=== PATIENT | male | born 1955 | race Two or more races ===

== ENCOUNTER 2023-01-20 10:15 | Inpatient (IN) | payer OTHER ==
[~2023-01-20] VITALS: Ht 177.8 cm; Wt 209.9 kg
[2023-01-20] VITALS (10 sets, daily range): BP systolic 106–127; BP diastolic 58–73; PULSE 54–84; RESP 13–18; TEMP 98.1–98.6; O2SAT 92–100
[2023-01-20 10:42] LABS: Basophils # (auto) 0.1 10 ^3/uL (0-0.2); Basophils % (auto) 0.8 % (0.0-2.0); Eosinophils # (auto) 0.1 10 ^3/uL (0-0.8); Eosinophils % (auto) 1.1 % (0.0-7.0); Hematocrit 46.8 % (41.0-53.0); Hemoglobin 15.5 g/dL (13.5-17.5); Lymphocytes # (auto) 1.9 10 ^3/uL (0.4-5.4); Lymphocytes % (auto) 14.8 % (10.0-50.0); Mean Corpuscular Hemoglobin 30.7 pg (28.0-32.0); Mean Corpuscular Hgb Conc. 33.2 g/dL (32.0-36.0); Mean Corpuscular Volume 92.5 fL (80.0-100.0); Monocytes # (auto) 0.9 10 ^3/uL (0-1.3); Monocytes % (auto) 6.8 % (0.0-12.0); Neutrophils % (auto) 76.5 % (37.0-80.0); Red Blood Cells 5.06 10^6/uL (4.5-5.90); Red Cell Distribution Width 13.7 % (11.8-14.3)
[2023-01-20] MEDS ORDERED: ASPirin 325 MG TAB PO ONE (10:45)
[2023-01-20] MEDS ORDERED: NITROGLYCERIN 0.4 MG SL TAB SL ONE (10:45)
[2023-01-20 10:58] LABS: Alanine Aminotransferase 29 U/L (7-40); Alkaline Phosphatase 67 U/L (46-116); Anion Gap 5 (5-15); Aspartate Aminotransferase 41 U/L (13-40); BUN/Creatinine Ratio 14.8 (10.0-20.0); Blood Urea Nitrogen 16 mg/dL (9-23); Calcium 9.5 mg/dL (8.5-10.1); Carbon Dioxide 30 mmol/L (20-30); Chloride 104 mmol/L (98-107); Glucose 145 mg/dL (74-106); Sodium 139 mmol/L (136-145)
[2023-01-20 10:59] LABS: Bilirubin, Total 1.1 mg/dL (0.2-1.0); Total Protein 6.8 g/dL (5.7-8.2)
[2023-01-20] MEDS ORDERED: ENOXAPARIN SOD 100 MG/1 ML SYRINGE SC ONE (11:15)
[2023-01-20 12:06] LABS: Urine Bacteria NONE SEEN /hpf (None Seen); Urine Blood Negative /uL (Negative); Urine Clarity Clear (Clear); Urine Color Yellow (Yellow); Urine Mucus FEW (None Seen); Urine Protein, UAD Negative (Negative); Urine Urobilinogen Normal (Negative); Urine WBC 2 /hpf (0 - 3)
[2023-01-20 12:31] LABS: Albumin 4.8 g/dL (3.2-4.8)
[2023-01-20 12:53] LABS: Basophils # (auto) 0.1 10 ^3/uL (0-0.2); Basophils % (auto) 0.7 % (0.0-2.0); Eosinophils # (auto) 0.1 10 ^3/uL (0-0.8); Eosinophils % (auto) 0.7 % (0.0-7.0); Hematocrit 45.1 % (41.0-53.0); Hemoglobin 15.2 g/dL (13.5-17.5); Lymphocytes # (auto) 1.9 10 ^3/uL (0.4-5.4); Lymphocytes % (auto) 15.6 % (10.0-50.0); Mean Corpuscular Hgb Conc. 33.6 g/dL (32.0-36.0); Mean Corpuscular Volume 92.1 fL (80.0-100.0); Monocytes # (auto) 0.6 10 ^3/uL (0-1.3); Neutrophils # (auto) 9.6 10 ^3/uL (1.6-8.6); Red Cell Distribution Width 13.4 % (11.8-14.3); White Blood Cell 12.3 10^3/uL (4.4-10.8)
[2023-01-20] MEDS ORDERED: HEPARIN DRIP/D5W 100UNITS/ML 250 ML IV SCH (13:00)
[2023-01-20 13:09] LABS: INR 1.1 (0.9-1.15); Partial Thromboplastin Time 35.3 SEC (24.5-34.5); Prothrombin Time 11.5 sec (9.3-11.8)
[2023-01-20] MEDS ORDERED: ACETAMINOPHEN 325 MG TAB PO PRN (15:00)
[2023-01-20] MEDS ORDERED: MORPHINE SULFATE 4 MG/ML SYR/VIAL IV PRN (15:00)
[2023-01-20] MEDS ORDERED: MORPHINE SULFATE INJ 2 MG/ml SYRG IV PRN ×2 (15:00→18:45)
[2023-01-20] MEDS ORDERED: ONDANSETRON HCL 4 MG/2 ML VIAL IV PRN (15:00)
[2023-01-20] MEDS ORDERED: CLOPIDOGREL 300 MG TAB PO ONE (15:00)
[2023-01-20] MEDS ORDERED: NITROGLYCERIN 0.4 MG SL TAB SL PRN ×2 (15:00→18:45)
[2023-01-20] MEDS ORDERED: NICOTINE 14 MG/24HR TOPICAL PATCH TD ONE (15:15)
[2023-01-20 16:21] LABS: Magnesium 1.9 mg/dL (1.6-2.6)
[2023-01-20] MEDS ORDERED: LIDOCAINE 2%HCL (LOCAL ANESTH.) INJ 20ML MDV ONE (16:38)
[2023-01-20] MEDS ORDERED: IODIXANOL 320MG/ML 100ML BTL IV ONE ×2 (16:38→18:04)
[2023-01-20] MEDS ORDERED: VERAPAMIL 2.5MG/ML INJ 2ML VIAL IV ONE (16:40)
[2023-01-20] MEDS ORDERED: ATROPINE SULF 1 MG/10ml SYR ONE (16:40)
[2023-01-20] MEDS ORDERED: MIDAZOLAM HCL 2MG/2ML 2ml VIAL (1mg/ml) ONE (16:40)
[2023-01-20] MEDS ORDERED: fentaNYL CITRATE 100 MCG/2 ML VL ONE (16:40)
[2023-01-20] MEDS ORDERED: ANGIOMAX 250 MG VIAL IV ONE (16:40)
[2023-01-20] MEDS ORDERED: EPINEPHrine HCL 1 MG/10 ML SYRG ONE (16:41)
[2023-01-20] MEDS ORDERED: SODIUM CHL 0.9% 50 ML ONE (16:41)
[2023-01-20] MEDS ORDERED: HEPARIN SODIUM (PORCINE) 5000 UNITS/ML 1ML VIAL ONE (16:41)
[2023-01-20] MEDS ORDERED: EPTIFIBATIDE INJ (2MG/ML) 10ML VIAL IV ONE (17:41)
[2023-01-20] MEDS ORDERED: niCARdipine 25 MG/10 ML VIAL IV ONE (17:44)
[2023-01-20] MEDS ORDERED: IOHEXOL 350 MG/ML 100ML IJ ONE (17:50)
[2023-01-20] MEDS ORDERED: TICAGRELOR 90 MG TAB ONE (18:09)
[2023-01-20] MEDS ORDERED: EPTIFIBATIDE DRIP(0.75MG/ML) 100 ML IV SCH (18:15)
[2023-01-20] MEDS ORDERED: EPTIFIBATIDE DRIP(0.75MG/ML) 100 ML IV ONE (18:15)
[2023-01-20] MEDS ORDERED: HYDR-4798 PO (20:27)
[2023-01-20] MEDS ORDERED: ATOR20TA50 PO (20:27)
[2023-01-20] MEDS ORDERED: METH-1181 PO (20:27)
[2023-01-20] MEDS ORDERED: ERGO1CAP23 PO (20:27)
[2023-01-20] MEDS ORDERED: GABA-339 PO (20:27)
[2023-01-20] MEDS ORDERED: METF-370 PO (20:27)
[2023-01-20] MEDS ORDERED: LISI20TA56 PO (20:27)
[2023-01-20] MEDS ORDERED: AMIT10TA12 PO (20:27)
[2023-01-20] MEDS ORDERED: CHOL500021 OR (20:27)
[2023-01-20 21:38] LABS: INR 1.16 (0.9-1.15); Partial Thromboplastin Time 55.4 SEC (24.5-34.5); Prothrombin Time 12.1 sec (9.3-11.8)
[2023-01-20] MEDS: TICAGRELOR 90 MG TAB PO SCH (22:05)
[2023-01-21] VITALS (7 sets, daily range): BP systolic 108–123; BP diastolic 61–72; PULSE 55–74; RESP 17–18; TEMP 98–99.1; O2SAT 96–98
[2023-01-21] MEDS: EPTIFIBATIDE DRIP(0.75MG/ML) 100 ML IV SCH ×4 (01:14→14:45)
[2023-01-21 07:03] LABS: Alanine Aminotransferase 32 U/L (7-40); Albumin 4.2 g/dL (3.2-4.8); Alkaline Phosphatase 61 U/L (46-116); Calcium 9.1 mg/dL (8.7-10.4); Carbon Dioxide 27 mmol/L (20-30); Chloride 104 mmol/L (98-107); Glucose 141 mg/dL (74-106); Potassium 4.1 mmol/L (3.5-5.1)
[2023-01-21 07:04] LABS: Anion Gap 7 (5-15); Aspartate Aminotransferase 89 U/L (13-40); BUN/Creatinine Ratio 13.5 (10.0-20.0); Blood Urea Nitrogen 14 mg/dL (9-23); Sodium 138 mmol/L (136-145); Total Protein 6.3 g/dL (5.7-8.2)
[2023-01-21 07:30] LABS: Basophils # (auto) 0 10 ^3/uL (0-0.2); Basophils % (auto) 0.4 % (0.0-2.0); Eosinophils # (auto) 0 10 ^3/uL (0-0.8); Eosinophils % (auto) 0.2 % (0.0-7.0); Hematocrit 42.3 % (41.0-53.0); Hemoglobin 14.6 g/dL (13.5-17.5); Lymphocytes % (auto) 16.3 % (10.0-50.0); Mean Corpuscular Hemoglobin 31.3 pg (28.0-32.0); Mean Corpuscular Hgb Conc. 34.5 g/dL (32.0-36.0); Mean Corpuscular Volume 90.9 fL (80.0-100.0); Monocytes # (auto) 1.2 10 ^3/uL (0-1.3); Monocytes % (auto) 9.8 % (0.0-12.0); Neutrophils # (auto) 8.9 10 ^3/uL (1.6-8.6); Neutrophils % (auto) 73.3 % (37.0-80.0); Nucleated Red Blood Cells % 0.2 %; Red Blood Cells 4.66 10^6/uL (4.5-5.90); Red Cell Distribution Width 13.6 % (11.8-14.3); White Blood Cell 12.2 10^3/uL (4.4-10.8)
[2023-01-21] MEDS: DOCUSATE SOD 100 MG CAP PO SCH (10:00)
[2023-01-21] MEDS ORDERED: CLOPIDOGREL BISULFATE 75 MG TAB PO SCH (10:00)
[2023-01-21] MEDS: TICAGRELOR 90 MG TAB PO SCH ×2 (10:27→21:16)
[2023-01-21] MEDS: NICOTINE 14 MG/24HR TOPICAL PATCH TD SCH (10:32)
[2023-01-21] MEDS ORDERED: METHOCARBAMOL 500 MG TAB PO PRN (13:30)
[2023-01-21] MEDS: GABAPENTIN 100 MG CAP PO SCH ×2 (14:00→21:18)
[2023-01-21] MEDS ORDERED: HYDROcodone-ACET 10/325MG TAB PO SCH (18:00)
[2023-01-21] MEDS: AMITRIPTYLINE HCL 10 MG TAB PO SCH (21:17)
[2023-01-22] VITALS (7 sets, daily range): BP systolic 89–116; BP diastolic 52–65; PULSE 60–72; RESP 16–20; TEMP 98.1–98.5; O2SAT 96–99
[2023-01-22 05:52] LABS: Basophils # (auto) 0.1 10 ^3/uL (0-0.2); Basophils % (auto) 0.9 % (0.0-2.0); Eosinophils # (auto) 0.1 10 ^3/uL (0-0.8); Eosinophils % (auto) 1.4 % (0.0-7.0); Hematocrit 44.5 % (41.0-53.0); Hemoglobin 14.8 g/dL (13.5-17.5); Lymphocytes # (auto) 2.6 10 ^3/uL (0.4-5.4); Lymphocytes % (auto) 24.7 % (10.0-50.0); Mean Corpuscular Hemoglobin 30.6 pg (28.0-32.0); Mean Corpuscular Hgb Conc. 33.4 g/dL (32.0-36.0); Mean Corpuscular Volume 91.8 fL (80.0-100.0); Monocytes # (auto) 1.2 10 ^3/uL (0-1.3); Monocytes % (auto) 11.8 % (0.0-12.0); Neutrophils # (auto) 6.4 10 ^3/uL (1.6-8.6); Neutrophils % (auto) 61.2 % (37.0-80.0); Red Blood Cells 4.85 10^6/uL (4.5-5.90); Red Cell Distribution Width 13.8 % (11.8-14.3); White Blood Cell 10.4 10^3/uL (4.4-10.8)
[2023-01-22] MEDS: GABAPENTIN 100 MG CAP PO SCH ×3 (06:01→23:23)
[2023-01-22 06:33] LABS: Alanine Aminotransferase 24 U/L (7-40); Alkaline Phosphatase 58 U/L (46-116); Anion Gap 7 (5-15); Calcium 9.1 mg/dL (8.7-10.4); Carbon Dioxide 27 mmol/L (20-30); Chloride 106 mmol/L (98-107); Potassium 4.4 mmol/L (3.5-5.1); Sodium 140 mmol/L (136-145)
[2023-01-22 06:34] LABS: Albumin 4.1 g/dL (3.2-4.8); BUN/Creatinine Ratio 14.2 (10.0-20.0); Blood Urea Nitrogen 16 mg/dL (9-23); Glucose 130 mg/dL (74-106)
[2023-01-22 06:35] LABS: Aspartate Aminotransferase 37 U/L (13-40)
[2023-01-22 06:36] LABS: Bilirubin, Total 2.2 mg/dL (0.2-1.0); Total Protein 6.3 g/dL (5.7-8.2)
[2023-01-22] MEDS: ASPirin 81 mg TAB PO SCH (09:10)
[2023-01-22] MEDS: DOCUSATE SOD 100 MG CAP PO SCH (09:11)
[2023-01-22] MEDS: LISINOPRIL 20 MG TAB PO SCH (09:11)
[2023-01-22] MEDS: TICAGRELOR 90 MG TAB PO SCH ×2 (09:11→21:47)
[2023-01-22] MEDS: HYDROcodone-ACET 10/325MG TAB PO PRN ×2 (09:12→21:46)
[2023-01-22] MEDS: ATORVASTATIN 20 MG TAB PO SCH (09:12)
[2023-01-22] MEDS: NICOTINE 14 MG/24HR TOPICAL PATCH TD SCH (09:12)
[2023-01-22] MEDS ORDERED: ASPI-325 PO (10:48)
[2023-01-22] MEDS ORDERED: TICA90TA PO (10:48)
[2023-01-22] MEDS: AMITRIPTYLINE HCL 10 MG TAB PO SCH (22:00)
[2023-01-23 05:00] VITALS: BP 111/66; PULSE 57; RESP 17; TEMP 98.4; O2SAT 98
[2023-01-23] MEDS ORDERED: GABAPENTIN 400 MG CAP PO SCH (07:00)
[2023-01-23 08:00] VITALS: PULSE 67; PULSE 78; RESP 18; O2SAT 98
[2023-01-23 09:00] VITALS: BP 104/60; PULSE 67; RESP 18; TEMP 98.2; O2SAT 98
[2023-01-23] MEDS: ASPirin 81 mg TAB PO SCH (09:19)
[2023-01-23] MEDS: ATORVASTATIN 20 MG TAB PO SCH (09:20)
[2023-01-23] MEDS: LISINOPRIL 20 MG TAB PO SCH (09:20)
[2023-01-23] MEDS: TICAGRELOR 90 MG TAB PO SCH (09:21)
[2023-01-23] MEDS: DOCUSATE SOD 100 MG CAP PO SCH (09:21)
[2023-01-23] MEDS: NICOTINE 14 MG/24HR TOPICAL PATCH TD SCH (09:24)
[2023-01-23] MEDS: HYDROcodone-ACET 10/325MG TAB PO PRN (09:24)
== END 2023-01-23 15:25 | disposition home or self-care (01) | DRG 251 ==
LOC: ER 10:15 → TELE 15:01 → TELE-EAST 20:40
PROVIDERS: ADMIT Nurse Practitioner Family; ATTEND Internal Medicine
PROC: 4A023N7 Measurement of Cardiac Sampling and Pressure, Left Heart, Percutaneous Approach (ICD-10-PCS; principal; 2023-01-20)
PROC: 02703ZZ Dilation of Coronary Artery, One Artery, Percutaneous Approach (ICD-10-PCS; 2023-01-20)
PROC: 02C03ZZ Extirpation of Matter from Coronary Artery, One Artery, Percutaneous Approach (ICD-10-PCS; 2023-01-20)
PROC: B211YZZ Fluoroscopy of Multiple Coronary Arteries using Other Contrast (ICD-10-PCS; 2023-01-20)
PROC: B215YZZ Fluoroscopy of Left Heart using Other Contrast (ICD-10-PCS; 2023-01-20)
PROC: 03HY32Z Insertion of Monitoring Device into Upper Artery, Percutaneous Approach (ICD-10-PCS; 2023-01-20)
DX: I21.4 Non-ST elevation (NSTEMI) myocardial infarction (principal); E11.65 Type 2 diabetes mellitus with hyperglycemia; E66.9 Obesity, unspecified; R09.02 Hypoxemia; I10 Essential (primary) hypertension; F17.200 Nicotine dependence, unspecified, uncomplicated; F12.929 Cannabis use, unspecified with intoxication, unspecified; R00.1 Bradycardia, unspecified; G89.29 Other chronic pain; D72.829 Elevated white blood cell count, unspecified; E78.5 Hyperlipidemia, unspecified; I95.9 Hypotension, unspecified; E11.42 Type 2 diabetes mellitus with diabetic polyneuropathy; I25.10 Atherosclerotic heart disease of native coronary artery without angina pectoris; Z79.82 Long term (current) use of aspirin; Z82.49 Family history of ischemic heart disease and other diseases of the circulatory system; Z98.61 Coronary angioplasty status; Z68.30 Body mass index [BMI] 30.0-30.9, adult
CPT/HCPCS: 36415; 71046; 72125; 80053; 80061; 81001; 83036; 83735; 83880; 84443; 84484; 85025; 85610; 85730; 86850; 86900; 86901; 92941; 92973; 93005; 93306; 93458; 96372; 99152; 99153; 99291; G0378; J2250; Q9967